=== PATIENT | female | born 1950 | race Caucasian/White ===

== ENCOUNTER 2017-01-19 10:52 | Observation (INO) | payer OTHER ==
[~2017-01-19] VITALS: Ht 157.5 cm; Wt 87.1 kg
[~2017-01-19 10:52] MED LIST: ACCU-CHEK AVIV1 EAC2; ACCU-CHEK AVIV1 EAC2 MC; ACETAMINOPHEN325 M1 PO; AMLODIPINE BESYL5 MG PO; ASPIR-LOW81 MG PO; ASPIRIN81 M1 PO; ASPIRIN81 M2 PO; ATORVASTATIN CA40 MG PO; Aspirin E.C. PO; BACTRIM,SEPT1 TABLE1 PO; BISACODYL5 MG PO; BUMETANIDE1 MG PO; CARVEDILOL12.5 MG PO; CEFEPIME HCL2 GM IM; CEFEPIME HCL2 GM IV; CEPHALEXIN500 MG PO; CLEOCIN300 MG PO; CLONAZEPAM0.5 MG PO; CLOPIDOGREL75 MG PO; Colace PO; EASY COMFORT P MC; FERROUS SULFAT325 MG PO; FLEXERIL5 MG PO; FLORASTOR250 MG PO; FUROSEMIDE40 MG PO; Flagyl PO; GABAPENTIN300 MG PO; HEPARIN SO5000 UNITS SC; HYDROCODON-ACE1 EAC7 PO; Hydrodiuril,Oretic,E PO; INSULIN SYRING1 EA30 MC; K-Dur PO; KLONOPIN0.5 M1 PO; KlonoPIN PO; LANTUS 10100 UNITS/ SC; LANTUS 3 M100 UNITS1 SC; LANTUS100 UNIT/1 SQ; LEVEMIR FL100 UNIT/1 SC; LEVEMIR100 UNIT/2 SC; LIPITOR40 MG PO; LISINOPRIL40 MG PO; LO-DOSE ASPIRIN81 M2 PO; LORAZEPAM1 MG PO; Lasix PO; Lopressor PO; MAXIPIME2 GM IM; MELOXICAM7.5 MG PO; METFORMIN HCL1000 MG PO; Maalox, Mylanta PO; NEURONTIN100 MG PO; NEURONTIN300 MG PO; NORVASC10 MG PO; NORVASC5 MG PO; NOVOLOG (UNITS1 UNIT IV; NOVOLOG 10100 UNITS/ SC; NOVOLOG PE100 UNITS/ SC; NYSTATIN15 GM TP; PLAVIX75 MG PO; PROVENTIL,2.5 MG/0.5 AEROSOL; PROzac PO; Plavix PO; Pravachol PO; Protonix PO; Rocephin IV; SERTRALINE HCL50 MG PO; SILVADENE,SSD,T50 GM TP; SILVER SULFADIA50 GM TP; SOFTCLIX1 EAC2 MC; TRAMADOL HCL50 MG PO; TYLENOL REGULA325 MG PO; Vicodin,Norco 5/325 PO; ZESTRIL40 MG PO; ZOLOFT50 MG PO; ZOSYN 3.3753.375 GM IV; Zestril,Prinivil PO; Zofran PO
[2017-01-19 12:06] LABS: HEMATOCRIT 36.7 % (36.0-46.0); MCH 29.2 PG (29.0-34.0); MCHC 33.2 G/DL (30.0-36.0); MCV 87.8 FL (83-99); MEAN PLAT.VOLUME 12.4 uM^3 (9.5-12.4); PLATELET COUNT 267 K/uL (156-360); RBC DIS.WIDTH-CV 12.5 % (11.8-14.6); RBC DIS.WIDTH-SD 39.4 % (39-53); RED BLOOD COUNT 4.18 M/uL (3.80-5.20); WHITE BLOOD COUNT 9.9 K/uL (4.1-10.2)
[2017-01-19 12:27] LABS: TROP-I INTERPRETATION NEGATIVE; TROPONIN-I 0.07 ng/mL (0.0-0.30)
[2017-01-19 12:33] LABS: CHLORIDE 109 mEq/L (99-109); POTASSIUM 4.5 mEq/L (3.7-5.4); SODIUM 141 mEq/L (136-147)
[2017-01-19 12:35] LABS: GLUCOSE 220 mg/dL (70-99)
[2017-01-19 12:36] LABS: ANION GAP 10 MEQ/L (2-14)
[2017-01-19 12:39] LABS: GFR ESTIMATE (CALCULATED) 48 mL/min/
[2017-01-19 12:40] LABS: UREA NITROGEN (BUN) 27 mg/dL (9-23)
[2017-01-19] MEDS ORDERED: FUROSEMIDE20 MG PO (13:30)
[2017-01-19] MEDS ORDERED: ASCORBIC ACID500 MG PO (13:31)
[2017-01-19] MEDS ORDERED: NOVOLOG PE100 UNITS/ SC (13:35)
[2017-01-19] MEDS ORDERED: LEVEMIR100 UNIT/2 SC (13:35)
[2017-01-19] MEDS ORDERED: MOTRIN IB200 MG PO (13:37)
[2017-01-19] MEDS ORDERED: LANTUS 10100 UNITS/ SC (13:38)
[2017-01-19 14:04] LABS: PROTHROMBIN TIME 9.7 (9.2-11.2); PTT 24.4 (25-32)
[2017-01-19 14:30] LABS: ADD MIUA? YES; BILIRUBIN NEGATIVE; BLOOD NEGATIVE; COLOR YELLOW ((YELLOW)); GLUCOSE (STRIP) >=500; KETONES NEGATIVE; LEUKOCYTES NEGATIVE; NITRITE NEGATIVE; PROTEIN (STRIP) >=500; SPECIFIC GRAVITY 1.018 (1.000-1.030); UROBILINOGEN 0.2 MG/DL (0.2-1.0)
[2017-01-19 14:38] LABS: BACTERIA NONE SEEN /HPF; EPITHELIAL CELLS RARE /HPF; GRANULAR CASTS 15-20 /LPF; HYALINE CASTS 0-5 /LPF; MUCUS TRACE /LPF; RED BLOOD CELLS 0-5 /HPF (0-5); WHITE BLOOD CELLS 0-5 /HPF (0-5)
[2017-01-19 15:49] VITALS: BP 167/72
[2017-01-19 16:08] LABS: HDL CHOLESTEROL 52 MG/DL (Desirable>=50); LDL CHOLESTEROL 62 mg/dL (Desirable<100); NON-HDL CHOLESTEROL 78 mg/dL (Desirable<160); SAMPLE HEMOLYSIS CHECK 0; SAMPLE ICTERIC CHECK 0; SAMPLE LIPEMIA CHECK 0; TOTAL CHOLESTEROL 130 mg/dL (Desirable<200); TRIGLYCERIDES 82 MG/DL (Normal: <150)
[2017-01-19 18:32] LABS: TROP-I INTERPRETATION NEGATIVE
[2017-01-19 18:38] LABS: Estimated Average Glucose 243 mg/dL (70-123); HEMOGLOBIN A1c (GLYCOHEMOGLOB) 10.1 % HGB (Below 5.7)
[2017-01-19 20:00] VITALS: BP 148/60
[2017-01-19 21:19] LABS: POINT-OF-CARE METER ID UU14162513
[2017-01-19 23:51] VITALS: BP 149/69
[2017-01-20 01:10] LABS: TROP-I INTERPRETATION NEGATIVE; TROPONIN-I 0.09 ng/mL (0.0-0.30)
[2017-01-20 04:00] VITALS: BP 144/62
[2017-01-20 06:25] LABS: ANION GAP 7 MEQ/L (2-14); CHLORIDE 108 MEQ/L (99-109); GFR ESTIMATE (CALCULATED) 48 mL/min/; GLUCOSE 132 mg/dL (70-99); POTASSIUM 3.8 MEQ/L (3.7-5.4); SAMPLE HEMOLYSIS CHECK 0; SAMPLE ICTERIC CHECK 0; SAMPLE LIPEMIA CHECK 0; SODIUM 142 MEQ/L (136-147); UREA NITROGEN (BUN) 26 mg/dL (9-23)
[2017-01-20 09:00] VITALS: BP 195/81
== END 2017-01-20 10:58 | disposition home or self-care (01) ==
LOC: EME 10:52 → EDOF 13:45 → 5WEST 15:37
PROVIDERS: Internal Medicine; Physician Assistant Medical
DX: R07.89 Other chest pain (principal); E87.6 Hypokalemia; I25.10 Atherosclerotic heart disease of native coronary artery without angina pectoris; R94.31 Abnormal electrocardiogram [ECG] [EKG]; R06.00 Dyspnea, unspecified; R00.2 Palpitations; I50.9 Heart failure, unspecified; G89.29 Other chronic pain; F32.9 Major depressive disorder, single episode, unspecified; E11.9 Type 2 diabetes mellitus without complications; E78.5 Hyperlipidemia, unspecified; K21.9 Gastro-esophageal reflux disease without esophagitis; I10 Essential (primary) hypertension; I25.2 Old myocardial infarction; Z95.5 Presence of coronary angioplasty implant and graft; I73.9 Peripheral vascular disease, unspecified; Z87.891 Personal history of nicotine dependence; E66.9 Obesity, unspecified
CPT/HCPCS: 71020; 80048; 80061; 81003; 82948; 83036; 83880; 84484; 85027; 85610; 85730; 93005; 99281; 99285; G0378; J1650; J1815; J2270

== ENCOUNTER 2017-02-07 15:23 | Inpatient (IN) | payer OTHER ==
[~2017-02-07] VITALS: Ht 157.5 cm; Wt 86.4 kg
[~2017-02-07 15:23] MED LIST changes: +ASCORBIC ACID500 MG PO; +FUROSEMIDE20 MG PO; +MOTRIN IB200 MG PO
[2017-02-07 15:59] LABS: HEMATOCRIT 39.6 % (36.0-46.0); MCHC 32.3 G/DL (30.0-36.0); MCV 89.6 FL (83-99); MEAN PLAT.VOLUME 13.3 uM^3 (9.5-12.4); PLATELET COUNT 228 K/uL (156-360); RBC DIS.WIDTH-CV 13.1 % (11.8-14.6); RBC DIS.WIDTH-SD 43.1 % (39-53); RED BLOOD COUNT 4.42 M/uL (3.80-5.20)
[2017-02-07 16:01] LABS: WHITE BLOOD COUNT 16.7 K/uL (4.1-10.2)
[2017-02-07 16:09] LABS: CHLORIDE 98 mEq/L (99-109); POTASSIUM 4.8 mEq/L (3.7-5.4); SODIUM 136 mEq/L (136-147)
[2017-02-07 16:12] LABS: ANION GAP 18 MEQ/L (2-14)
[2017-02-07 16:13] LABS: TOTAL BILIRUBIN 0.5 mg/dL (0.0-1.0)
[2017-02-07 16:14] LABS: ALKALINE PHOSPHATASE 138 IU/L (3-129)
[2017-02-07 16:15] LABS: GFR ESTIMATE (CALCULATED) 32 mL/min/
[2017-02-07 16:16] LABS: UREA NITROGEN (BUN) 40 mg/dL (9-23)
[2017-02-07 16:20] LABS: TROP-I INTERPRETATION INDETERMINATE; TROPONIN-I 0.55 ng/mL (0.0-0.30)
[2017-02-07 16:21] LABS: GLUCOSE 547 mg/dL (70-99)
[2017-02-07 17:50] LABS: INTER. NORMALIZED RATIO 1.2; PROTHROMBIN TIME 12.3 (9.2-11.2); PTT 31.3 (25-32)
[2017-02-07 18:26] LABS: Estimated Average Glucose 249 mg/dL (70-123); HEMOGLOBIN A1c (GLYCOHEMOGLOB) 10.3 % HGB (Below 5.7)
[2017-02-07 20:46] VITALS: BP 92/68
[2017-02-07 21:00] VITALS: BP 105/65
[2017-02-07 21:01] LABS: HEMATOCRIT 28.1 % (36.0-46.0); MCH 29.1 PG (29.0-34.0); MCHC 32.4 G/DL (30.0-36.0); MCV 89.8 FL (83-99); MEAN PLAT.VOLUME 13.2 uM^3 (9.5-12.4); PLATELET COUNT 258 K/uL (156-360); RBC DIS.WIDTH-CV 13.2 % (11.8-14.6); RBC DIS.WIDTH-SD 43.6 % (39-53); WHITE BLOOD COUNT 19.2 K/uL (4.1-10.2)
[2017-02-07 21:12] LABS: RED BLOOD COUNT 3.13 M/uL (3.80-5.20)
[2017-02-07 21:23] LABS: TROP-I INTERPRETATION POSITIVE; TROPONIN-I 1.52 ng/mL (0.0-0.30)
[2017-02-07 21:28] LABS: ANION GAP 14 MEQ/L (2-14); CHLORIDE 99 MEQ/L (99-109); MAGNESIUM 1.7 mg/dl (1.3-2.7); SAMPLE HEMOLYSIS CHECK 0; SAMPLE ICTERIC CHECK 0; SAMPLE LIPEMIA CHECK 0; SODIUM 134 MEQ/L (136-147)
[2017-02-07 21:32] LABS: POTASSIUM 3.8 MEQ/L (3.7-5.4)
[2017-02-07 21:40] LABS: GFR ESTIMATE (CALCULATED) 34 mL/min/; GLUCOSE 407 mg/dL (70-99); UREA NITROGEN (BUN) 42 mg/dL (9-23)
[2017-02-07 21:50] LABS: METH RESISTANT S AUREUS PCR NEGATIVE (NEGATIVE)
[2017-02-07 21:53] LABS: PROBE CHECK PASS; SPECIMEN PROCESSING CONTROL PASS
[2017-02-07 22:00] VITALS: BP 89/42
[2017-02-07 22:39] LABS: INTER. NORMALIZED RATIO 1.3
[2017-02-07 23:00] VITALS: BP 93/45
[2017-02-07 23:43] VITALS: BP 93/45
[2017-02-07 23:49] LABS: ADD MIUA? YES; BILIRUBIN NEGATIVE; BLOOD MODERATE; COLOR YELLOW ((YELLOW)); GLUCOSE (STRIP) >=500; KETONES 5; LEUKOCYTES NEGATIVE; NITRITE NEGATIVE; PROTEIN (STRIP) >=500; SPECIFIC GRAVITY 1.023 (1.000-1.030); UROBILINOGEN 0.2 MG/DL (0.2-1.0)
[2017-02-08] VITALS (35 sets, daily range): BP systolic 90–153; BP diastolic 38–86
[2017-02-08 00:02] LABS: BACTERIA NONE SEEN /HPF; EPITHELIAL CELLS RARE /HPF; MUCUS TRACE /LPF; RED BLOOD CELLS NONE SEEN /HPF (0-5); UCUL ADDED? NO
[2017-02-08 00:05] LABS: FIBRINOGEN 573 MG/DL (160-450)
[2017-02-08 01:34] LABS: POINT-OF-CARE METER ID UU14162636
[2017-02-08 02:08] LABS: CARBON DIOXIDE (BICARBONATE) 25.3 MEQ/L (20-31)
[2017-02-08 02:21] LABS: CHLORIDE 102 mEq/L (99-109); SODIUM 134 mEq/L (136-147)
[2017-02-08 02:23] LABS: GLUCOSE 208 mg/dL (70-99)
[2017-02-08 02:24] LABS: ANION GAP 8 MEQ/L (2-14)
[2017-02-08 02:27] LABS: GFR ESTIMATE (CALCULATED) 27 mL/min/
[2017-02-08 02:27] LABS: POINT-OF-CARE METER ID UU14162636
[2017-02-08 02:28] LABS: UREA NITROGEN (BUN) 46 mg/dL (9-23)
[2017-02-08 02:40] LABS: TROP-I INTERPRETATION POSITIVE; TROPONIN-I 22.05 ng/mL (0.0-0.30)
[2017-02-08 03:37] LABS: HEMATOCRIT 40.5 % (36.0-46.0); MCH 28.9 PG (29.0-34.0); MCHC 32.6 G/DL (30.0-36.0); MCV 88.8 FL (83-99); RBC DIS.WIDTH-CV 13.2 % (11.8-14.6); RBC DIS.WIDTH-SD 43.4 % (39-53)
[2017-02-08 03:38] LABS: POINT-OF-CARE METER ID UU14162636
[2017-02-08 03:38] LABS: RED BLOOD COUNT 4.56 M/uL (3.80-5.20)
[2017-02-08 04:06] LABS: MEAN PLAT.VOLUME 13.1 uM^3 (9.5-12.4)
[2017-02-08 04:08] LABS: PLATELET COUNT 174 K/uL (156-360)
[2017-02-08 04:22] LABS: POINT-OF-CARE METER ID UU14162636
[2017-02-08 05:46] LABS: CARBON DIOXIDE (BICARBONATE) 27.9 MEQ/L (20-31)
[2017-02-08 05:55] LABS: CHLORIDE 101 mEq/L (99-109); POTASSIUM 3.9 mEq/L (3.7-5.4); SODIUM 135 mEq/L (136-147)
[2017-02-08 05:56] LABS: MAGNESIUM 1.4 mg/dL (1.3-2.7)
[2017-02-08 05:58] LABS: GLUCOSE 130 mg/dL (70-99)
[2017-02-08 05:59] LABS: ANION GAP 10 MEQ/L (2-14)
[2017-02-08 06:02] LABS: ALKALINE PHOSPHATASE 95 IU/L (3-129); GFR ESTIMATE (CALCULATED) 25 mL/min/; TOTAL BILIRUBIN 1.2 mg/dL (0.0-1.0)
[2017-02-08 06:03] LABS: UREA NITROGEN (BUN) 48 mg/dL (9-23)
[2017-02-08 06:08] LABS: TROP-I INTERPRETATION POSITIVE
[2017-02-08 06:08] LABS: HEMATOCRIT 35.6 % (36.0-46.0); MCH 29.1 PG (29.0-34.0); MCHC 33.1 G/DL (30.0-36.0); MCV 87.7 FL (83-99); MEAN PLAT.VOLUME 13.5 uM^3 (9.5-12.4); PLATELET COUNT 198 K/uL (156-360); RBC DIS.WIDTH-CV 13.3 % (11.8-14.6); RBC DIS.WIDTH-SD 42.7 % (39-53); RED BLOOD COUNT 4.06 M/uL (3.80-5.20); WHITE BLOOD COUNT 14.2 K/uL (4.1-10.2)
[2017-02-08 06:27] LABS: POINT-OF-CARE METER ID UU14162636
[2017-02-08 10:17] LABS: HEMATOCRIT 37.9 % (36.0-46.0); MCH 29.5 PG (29.0-34.0); MCHC 33.5 G/DL (30.0-36.0); MCV 87.9 FL (83-99); RBC DIS.WIDTH-CV 13.6 % (11.8-14.6); RBC DIS.WIDTH-SD 44.3 % (39-53); RED BLOOD COUNT 4.31 M/uL (3.80-5.20); WHITE BLOOD COUNT 14.5 K/uL (4.1-10.2)
[2017-02-08 10:44] LABS: ANION GAP 12 MEQ/L (2-14); CHLORIDE 103 MEQ/L (99-109); GFR ESTIMATE (CALCULATED) 25 mL/min/; GLUCOSE 159 mg/dL (70-99); POTASSIUM 4.1 MEQ/L (3.7-5.4); SAMPLE HEMOLYSIS CHECK 0; SAMPLE ICTERIC CHECK 0; SAMPLE LIPEMIA CHECK 0; SODIUM 135 MEQ/L (136-147); UREA NITROGEN (BUN) 50 mg/dL (9-23)
[2017-02-08 10:46] LABS: TROP-I INTERPRETATION POSITIVE
[2017-02-08 12:12] LABS: POINT-OF-CARE METER ID UU14162636
[2017-02-08 12:27] LABS: PLATELET COUNT UNABLE TO REPORT K/uL (156-360)
[2017-02-08 13:59] LABS: HEMATOCRIT 39.1 % (36.0-46.0); MCH 29.5 PG (29.0-34.0); MCHC 33.5 G/DL (30.0-36.0); MCV 88.1 FL (83-99); MEAN PLAT.VOLUME 13.1 uM^3 (9.5-12.4); RBC DIS.WIDTH-CV 13.7 % (11.8-14.6); RBC DIS.WIDTH-SD 44.4 % (39-53); RED BLOOD COUNT 4.44 M/uL (3.80-5.20); WHITE BLOOD COUNT 14.7 K/uL (4.1-10.2)
[2017-02-08 14:01] LABS: PLATELET COUNT 179 K/uL (156-360)
[2017-02-08 14:21] LABS: ANION GAP 13 MEQ/L (2-14); CHLORIDE 102 MEQ/L (99-109); GFR ESTIMATE (CALCULATED) 25 mL/min/; GLUCOSE 197 mg/dL (70-99); POTASSIUM 4.1 MEQ/L (3.7-5.4); SAMPLE HEMOLYSIS CHECK 0; SAMPLE ICTERIC CHECK 0; SAMPLE LIPEMIA CHECK 0; SODIUM 137 MEQ/L (136-147); UREA NITROGEN (BUN) 54 mg/dL (9-23)
[2017-02-08 14:26] LABS: TROP-I INTERPRETATION POSITIVE
[2017-02-08 14:33] LABS: POINT-OF-CARE METER ID UU14162636
[2017-02-08] MEDS ORDERED: NOVOLOG 10100 UNITS/ SC (14:42)
[2017-02-08] MEDS ORDERED: FUROSEMIDE20 MG PO (14:42)
[2017-02-08] MEDS ORDERED: CLOPIDOGREL75 MG PO (14:42)
[2017-02-08] MEDS ORDERED: CARVEDILOL12.5 MG PO (14:42)
[2017-02-08] MEDS ORDERED: CLONAZEPAM0.5 MG PO (14:43)
[2017-02-08] MEDS ORDERED: LANTUS 10100 UNITS/ SC (14:43)
[2017-02-08] MEDS ORDERED: SERTRALINE HCL50 MG PO (14:43)
[2017-02-08] MEDS ORDERED: ATORVASTATIN CA40 MG PO (14:44)
[2017-02-08] MEDS ORDERED: VITAMIN C500 M1 PO (14:44)
[2017-02-08] MEDS ORDERED: ADVIL,NUPRIN,M200 MG PO (14:45)
[2017-02-08] MEDS ORDERED: HYDROCODON-ACE1 EAC7 PO (14:45)
[2017-02-08] MEDS ORDERED: IRON325 MG PO (14:45)
[2017-02-08] MEDS ORDERED: LO-DOSE ASPIRIN81 M2 PO (14:45)
[2017-02-08] MEDS ORDERED: CALCIUM 500 MG1 EACH PO (14:45)
[2017-02-08 18:05] LABS: HEMATOCRIT 42.2 % (36.0-46.0); MCH 29.1 PG (29.0-34.0); MCHC 32.9 G/DL (30.0-36.0); MCV 88.3 FL (83-99); RBC DIS.WIDTH-CV 13.6 % (11.8-14.6); RBC DIS.WIDTH-SD 44.4 % (39-53); RED BLOOD COUNT 4.78 M/uL (3.80-5.20); WHITE BLOOD COUNT 13.5 K/uL (4.1-10.2)
[2017-02-08 18:12] LABS: POINT-OF-CARE METER ID UU14162636
[2017-02-08 18:26] LABS: MEAN PLAT.VOLUME 13.1 uM^3 (9.5-12.4); PLATELET COUNT 195 K/uL (156-360)
[2017-02-08 18:30] LABS: ANION GAP 13 MEQ/L (2-14); CHLORIDE 100 MEQ/L (99-109); GFR ESTIMATE (CALCULATED) 24 mL/min/; GLUCOSE 237 mg/dL (70-99); POTASSIUM 4.1 MEQ/L (3.7-5.4); SAMPLE HEMOLYSIS CHECK 0; SAMPLE ICTERIC CHECK 0; SAMPLE LIPEMIA CHECK 0; SODIUM 136 MEQ/L (136-147); UREA NITROGEN (BUN) 52 mg/dL (9-23)
[2017-02-08 19:00] LABS: TROP-I INTERPRETATION POSITIVE; TROPONIN-I 112.18 ng/mL (0.0-0.30)
[2017-02-08 21:42] LABS: POINT-OF-CARE METER ID UU14162636
[2017-02-08 21:52] LABS: HEMATOCRIT 41.4 % (36.0-46.0); MCHC 32.9 G/DL (30.0-36.0); MCV 88.3 FL (83-99); MEAN PLAT.VOLUME 13.1 uM^3 (9.5-12.4); PLATELET COUNT 174 K/uL (156-360); RBC DIS.WIDTH-CV 13.7 % (11.8-14.6); RBC DIS.WIDTH-SD 44.5 % (39-53); RED BLOOD COUNT 4.69 M/uL (3.80-5.20); WHITE BLOOD COUNT 12.5 K/uL (4.1-10.2)
[2017-02-09] VITALS (23 sets, daily range): BP systolic 111–151; BP diastolic 47–69
[2017-02-09 05:15] LABS: HEMATOCRIT 38.5 % (36.0-46.0); MCH 29.1 PG (29.0-34.0); MCHC 33.2 G/DL (30.0-36.0); MCV 87.5 FL (83-99); MEAN PLAT.VOLUME 13.5 uM^3 (9.5-12.4); PLATELET COUNT 173 K/uL (156-360); RBC DIS.WIDTH-CV 13.8 % (11.8-14.6); WHITE BLOOD COUNT 12.7 K/uL (4.1-10.2)
[2017-02-09 05:45] LABS: ALKALINE PHOSPHATASE 73 IU/L (3-129); ANION GAP 14 MEQ/L (2-14); CHLORIDE 100 MEQ/L (99-109); GFR ESTIMATE (CALCULATED) 21 mL/min/; GLUCOSE 273 mg/dL (70-99); MAGNESIUM 1.9 mg/dl (1.3-2.7); POTASSIUM 3.9 MEQ/L (3.7-5.4); SAMPLE HEMOLYSIS CHECK 0; SAMPLE ICTERIC CHECK 0; SAMPLE LIPEMIA CHECK 0; SODIUM 136 MEQ/L (136-147); TOTAL BILIRUBIN 0.5 MG/DL (0.0-1.0); UREA NITROGEN (BUN) 61 mg/dL (9-23)
[2017-02-09 05:53] LABS: TROP-I INTERPRETATION POSITIVE; TROPONIN-I 78.53 ng/mL (0.0-0.30)
[2017-02-09 08:02] LABS: POINT-OF-CARE METER ID UU13113702
[2017-02-09 08:02] LABS: POINT-OF-CARE METER ID UU13113702
[2017-02-09 13:49] LABS: TROP-I INTERPRETATION POSITIVE
[2017-02-09 16:35] LABS: POINT-OF-CARE USER ID 606021424
[2017-02-09 19:36] LABS: TROPONIN-I 44.45 ng/mL (0.0-0.30)
[2017-02-09 19:40] LABS: TROP-I INTERPRETATION POSITIVE
[2017-02-09 22:21] LABS: POINT-OF-CARE METER ID UU13113731
[2017-02-10] VITALS (10 sets, daily range): BP systolic 110–165; BP diastolic 46–71
[2017-02-10 02:55] LABS: TROP-I INTERPRETATION POSITIVE; TROPONIN-I 33.34 ng/mL (0.0-0.30)
[2017-02-10 08:22] LABS: POINT-OF-CARE METER ID UU13113731
[2017-02-10 10:08] LABS: HEMATOCRIT 40.5 % (36.0-46.0); MCH 28.7 PG (29.0-34.0); MCHC 32.8 G/DL (30.0-36.0); MCV 87.5 FL (83-99); MEAN PLAT.VOLUME 13.1 uM^3 (9.5-12.4); PLATELET COUNT 177 K/uL (156-360); RBC DIS.WIDTH-CV 13.6 % (11.8-14.6); RBC DIS.WIDTH-SD 43.8 % (39-53); RED BLOOD COUNT 4.63 M/uL (3.80-5.20); WHITE BLOOD COUNT 12.8 K/uL (4.1-10.2)
[2017-02-10 10:48] LABS: TROP-I INTERPRETATION POSITIVE; TROPONIN-I 26.07 ng/mL (0.0-0.30)
[2017-02-10 10:51] LABS: ALKALINE PHOSPHATASE 73 IU/L (3-129); ANION GAP 11 MEQ/L (2-14); CHLORIDE 101 MEQ/L (99-109); GFR ESTIMATE (CALCULATED) 25 mL/min/; GLUCOSE 312 mg/dL (70-99); MAGNESIUM 2.5 mg/dl (1.3-2.7); POTASSIUM 3.9 MEQ/L (3.7-5.4); SAMPLE HEMOLYSIS CHECK 0; SAMPLE ICTERIC CHECK 0; SAMPLE LIPEMIA CHECK 0; SODIUM 136 MEQ/L (136-147); TOTAL BILIRUBIN 0.4 MG/DL (0.0-1.0); UREA NITROGEN (BUN) 65 mg/dL (9-23)
[2017-02-10 12:10] LABS: POINT-OF-CARE METER ID UU14162636
[2017-02-10 16:57] LABS: POINT-OF-CARE METER ID UU14162636
[2017-02-10 18:24] LABS: TROP-I INTERPRETATION POSITIVE; TROPONIN-I 22.94 ng/mL (0.0-0.30)
[2017-02-10 21:28] LABS: POINT-OF-CARE METER ID UU14162636
[2017-02-11] VITALS (10 sets, daily range): BP systolic 78–165; BP diastolic 42–63
[2017-02-11 03:16] LABS: POINT-OF-CARE METER ID UU14174217
[2017-02-11 06:05] LABS: HEMATOCRIT 39.1 % (36.0-46.0); MCH 28.8 PG (29.0-34.0); MCHC 32.2 G/DL (30.0-36.0); MCV 89.3 FL (83-99); MEAN PLAT.VOLUME 12.9 uM^3 (9.5-12.4); PLATELET COUNT 199 K/uL (156-360); RBC DIS.WIDTH-CV 13.4 % (11.8-14.6); RBC DIS.WIDTH-SD 44.4 % (39-53); RED BLOOD COUNT 4.38 M/uL (3.80-5.20); WHITE BLOOD COUNT 11.5 K/uL (4.1-10.2)
[2017-02-11 06:31] LABS: TROP-I INTERPRETATION POSITIVE; TROPONIN-I 23.72 ng/mL (0.0-0.30)
[2017-02-11 06:34] LABS: ALKALINE PHOSPHATASE 79 IU/L (3-129); ANION GAP 9 MEQ/L (2-14); CHLORIDE 103 MEQ/L (99-109); GFR ESTIMATE (CALCULATED) 27 mL/min/; GLUCOSE 143 mg/dL (70-99); MAGNESIUM 2.4 mg/dl (1.3-2.7); POTASSIUM 3.7 MEQ/L (3.7-5.4); SAMPLE HEMOLYSIS CHECK 0; SAMPLE ICTERIC CHECK 0; SAMPLE LIPEMIA CHECK 0; SODIUM 135 MEQ/L (136-147); TOTAL BILIRUBIN 0.4 MG/DL (0.0-1.0); UREA NITROGEN (BUN) 58 mg/dL (9-23)
[2017-02-11 08:38] LABS: POINT-OF-CARE METER ID UU13113731
[2017-02-11 11:53] LABS: POINT-OF-CARE METER ID UU13113731
[2017-02-11 17:28] LABS: POINT-OF-CARE METER ID UU13113731
[2017-02-11 18:29] LABS: TROP-I INTERPRETATION POSITIVE; TROPONIN-I 17.53 ng/mL (0.0-0.30)
[2017-02-11 20:05] LABS: POINT-OF-CARE METER ID UU14174217
[2017-02-12] VITALS (8 sets, daily range): BP systolic 105–153; BP diastolic 33–59
[2017-02-12 04:40] LABS: POINT-OF-CARE METER ID UU13113731
[2017-02-12 04:50] LABS: MCH 29.1 PG (29.0-34.0); MCHC 32.6 G/DL (30.0-36.0); MCV 89.4 FL (83-99); RBC DIS.WIDTH-CV 13.4 % (11.8-14.6); RBC DIS.WIDTH-SD 44.5 % (39-53); RED BLOOD COUNT 4.36 M/uL (3.80-5.20); WHITE BLOOD COUNT 10.1 K/uL (4.1-10.2)
[2017-02-12 05:04] LABS: CHLORIDE 105 mEq/L (99-109); POTASSIUM 3.9 mEq/L (3.7-5.4); SODIUM 136 mEq/L (136-147)
[2017-02-12 05:06] LABS: GLUCOSE 223 mg/dL (70-99); MAGNESIUM 2.4 mg/dL (1.3-2.7)
[2017-02-12 05:07] LABS: ANION GAP 7 MEQ/L (2-14)
[2017-02-12 05:09] LABS: ALKALINE PHOSPHATASE 77 IU/L (3-129)
[2017-02-12 05:10] LABS: GFR ESTIMATE (CALCULATED) 28 mL/min/
[2017-02-12 05:11] LABS: UREA NITROGEN (BUN) 60 mg/dL (9-23)
[2017-02-12 05:26] LABS: TOTAL BILIRUBIN 0.3 mg/dL (0.0-1.0)
[2017-02-12 07:03] LABS: MEAN PLAT.VOLUME 13.1 uM^3 (9.5-12.4); PLATELET COUNT 207 K/uL (156-360)
[2017-02-12 12:31] LABS: POINT-OF-CARE METER ID UU13113803
[2017-02-12 16:54] LABS: POINT-OF-CARE METER ID UU13113803
[2017-02-13] VITALS (8 sets, daily range): BP systolic 84–155; BP diastolic 45–63
[2017-02-13 06:49] LABS: HEMATOCRIT 41.9 % (36.0-46.0); MCH 29.1 PG (29.0-34.0); MCHC 30.5 G/DL (30.0-36.0); MEAN PLAT.VOLUME 12.6 uM^3 (9.5-12.4); PLATELET COUNT 210 K/uL (156-360); RBC DIS.WIDTH-CV 13.5 % (11.8-14.6); RBC DIS.WIDTH-SD 47.9 % (39-53); WHITE BLOOD COUNT 11.3 K/uL (4.1-10.2)
[2017-02-13 07:01] LABS: MCV 95.2 FL (83-99)
[2017-02-13 07:06] LABS: ALKALINE PHOSPHATASE 75 IU/L (3-129); ANION GAP 13 MEQ/L (2-14); CHLORIDE 105 MEQ/L (99-109); GFR ESTIMATE (CALCULATED) 30 mL/min/; GLUCOSE 312 mg/dL (70-99); MAGNESIUM 2.5 mg/dl (1.3-2.7); POTASSIUM 4.3 MEQ/L (3.7-5.4); SAMPLE HEMOLYSIS CHECK 0; SAMPLE ICTERIC CHECK 0; SAMPLE LIPEMIA CHECK 0; SODIUM 136 MEQ/L (136-147); TOTAL BILIRUBIN 0.3 MG/DL (0.0-1.0); UREA NITROGEN (BUN) 50 mg/dL (9-23)
[2017-02-13 22:22] LABS: POINT-OF-CARE METER ID UU14174217; POINT-OF-CARE USER ID RADDRS44
[2017-02-14] VITALS (12 sets, daily range): BP systolic 116–166; BP diastolic 39–67
[2017-02-14 05:48] LABS: HEMATOCRIT 35.9 % (36.0-46.0); MCHC 32.6 G/DL (30.0-36.0); MCV 88.9 FL (83-99); MEAN PLAT.VOLUME 12.4 uM^3 (9.5-12.4); PLATELET COUNT 276 K/uL (156-360); RBC DIS.WIDTH-CV 13.3 % (11.8-14.6); RBC DIS.WIDTH-SD 43.8 % (39-53); RED BLOOD COUNT 4.04 M/uL (3.80-5.20)
[2017-02-14 06:08] LABS: ANION GAP 7 MEQ/L (2-14); CHLORIDE 106 MEQ/L (99-109); GFR ESTIMATE (CALCULATED) 32 mL/min/; POTASSIUM 3.5 MEQ/L (3.7-5.4); SAMPLE HEMOLYSIS CHECK 0; SAMPLE ICTERIC CHECK 0; SAMPLE LIPEMIA CHECK 0; SODIUM 138 MEQ/L (136-147); UREA NITROGEN (BUN) 51 mg/dL (9-23)
[2017-02-14 06:13] LABS: GLUCOSE 120 mg/dL (70-99)
[2017-02-14 06:21] LABS: ALKALINE PHOSPHATASE 68 IU/L (3-129); ANION GAP 8 MEQ/L (2-14); CHLORIDE 106 MEQ/L (99-109); GFR ESTIMATE (CALCULATED) 32 mL/min/; MAGNESIUM 2.5 mg/dl (1.3-2.7); POTASSIUM 3.5 MEQ/L (3.7-5.4); SAMPLE HEMOLYSIS CHECK 0; SAMPLE ICTERIC CHECK 0; SAMPLE LIPEMIA CHECK 0; SODIUM 138 MEQ/L (136-147); TOTAL BILIRUBIN 0.3 MG/DL (0.0-1.0); UREA NITROGEN (BUN) 51 mg/dL (9-23)
[2017-02-14 06:33] LABS: GLUCOSE 120 mg/dL (70-99)
[2017-02-14 08:45] LABS: POINT-OF-CARE METER ID UU14174217
[2017-02-14 13:07] LABS: POINT-OF-CARE METER ID UU14174217
[2017-02-14 18:56] LABS: POINT-OF-CARE METER ID UU13113819
[2017-02-14 21:26] LABS: POINT-OF-CARE METER ID UU14174217
[2017-02-15] VITALS (8 sets, daily range): BP systolic 119–166; BP diastolic 41–55
[2017-02-15 05:57] LABS: BASOPHIL COUNT 0.1 K/uL (0-0.1); EOSINOPHIL (%) 3.6 % (0-5); EOSINOPHIL COUNT 0.5 K/uL (0-0.3); HEMATOCRIT 33.8 % (36.0-46.0); IMMATURE GRANULOCYTE (%) 1.6 % (0.0-0.7); IMMATURE GRANULOCYTE COUNT 0.2 K/uL; INSTRUMENT ABS NEUTROPHIL CT 8.8 K/uL; MCH 28.7 PG (29.0-34.0); MCHC 31.7 G/DL (30.0-36.0); MCV 90.6 FL (83-99); MEAN PLAT.VOLUME 12.2 uM^3 (9.5-12.4); MONOCYTE (%) 7.9 % (3-12); MONOCYTE COUNT 1.1 K/uL (0-0.8); NEUTROPHIL (%) 64.3 % (45-76); NEUTROPHIL COUNT 8.8 K/uL (1.8-6.4); PLATELET COUNT 287 K/uL (156-360); RBC DIS.WIDTH-CV 13.6 % (11.8-14.6); RBC DIS.WIDTH-SD 45.2 % (39-53); RED BLOOD COUNT 3.73 M/uL (3.80-5.20); WHITE BLOOD COUNT 13.7 K/uL (4.1-10.2)
[2017-02-15 06:21] LABS: ANION GAP 8 MEQ/L (2-14); CHLORIDE 108 MEQ/L (99-109); GFR ESTIMATE (CALCULATED) 34 mL/min/; GLUCOSE 105 mg/dL (70-99); POTASSIUM 3.9 MEQ/L (3.7-5.4); SAMPLE HEMOLYSIS CHECK 0; SAMPLE ICTERIC CHECK 0; SAMPLE LIPEMIA CHECK 0; SODIUM 141 MEQ/L (136-147); UREA NITROGEN (BUN) 44 mg/dL (9-23)
[2017-02-15 12:16] LABS: POINT-OF-CARE METER ID UU13113731
[2017-02-15 17:30] LABS: POINT-OF-CARE METER ID UU13113731
[2017-02-15 22:28] LABS: POINT-OF-CARE METER ID UU13113731
[2017-02-16] VITALS (11 sets, daily range): BP systolic 52–154; BP diastolic 38–58
[2017-02-16 05:49] LABS: MCH 28.7 PG (29.0-34.0); MCHC 31.7 G/DL (30.0-36.0); MCV 90.7 FL (83-99); RBC DIS.WIDTH-CV 13.6 % (11.8-14.6); RBC DIS.WIDTH-SD 45.7 % (39-53); RED BLOOD COUNT 3.97 M/uL (3.80-5.20); WHITE BLOOD COUNT 12.9 K/uL (4.1-10.2)
[2017-02-16 07:12] LABS: PLATELET COUNT UNABLE TO REPORT K/uL (156-360)
[2017-02-16 07:32] LABS: ANION GAP 8 MEQ/L (2-14); CHLORIDE 106 MEQ/L (99-109); GFR ESTIMATE (CALCULATED) 32 mL/min/; POTASSIUM 4.5 MEQ/L (3.7-5.4); SAMPLE HEMOLYSIS CHECK 0; SAMPLE ICTERIC CHECK 0; SAMPLE LIPEMIA CHECK 0; SODIUM 141 MEQ/L (136-147); UREA NITROGEN (BUN) 42 mg/dL (9-23)
[2017-02-16 07:39] LABS: GLUCOSE 159 mg/dL (70-99)
[2017-02-16 21:43] LABS: BASE EXCESS -7.3 mEq/L (-3 to +3); BICARBONATE 26.3 mEq/L (22-26); CARBOXY HGB 1.4 % (0-5); METHEMOGLOBIN 1.4 % (0-1.5); PCO2 102 mm Hg (35-45); PO2 49 mm Hg (80-100); TOTAL RESP RATE 20 resp/min; pH 7.02 (7.35-7.45)
[2017-02-16 21:44] LABS: DEVICE NRM; FI02 90 %; O2 FLOW 20 L/MIN; SITE LR
[2017-02-17] VITALS (8 sets, daily range): BP systolic 114–167; BP diastolic 43–73
[2017-02-17 07:48] LABS: ANION GAP 8 MEQ/L (2-14); CHLORIDE 104 MEQ/L (99-109); GFR ESTIMATE (CALCULATED) 30 mL/min/; SAMPLE HEMOLYSIS CHECK 0; SAMPLE ICTERIC CHECK 0; SAMPLE LIPEMIA CHECK 0; SODIUM 138 MEQ/L (136-147); UREA NITROGEN (BUN) 47 mg/dL (9-23)
[2017-02-17 07:49] LABS: GLUCOSE 422 mg/dL (70-99); POTASSIUM 5.9 MEQ/L (3.7-5.4)
[2017-02-17 10:12] LABS: TROP-I INTERPRETATION POSITIVE; TROPONIN-I 3.33 ng/mL (0.0-0.30)
[2017-02-18 09:51] LABS: HEMATOCRIT 38.2 % (36.0-46.0); MCH 28.7 PG (29.0-34.0); MCHC 31.7 G/DL (30.0-36.0); MCV 90.7 FL (83-99); MEAN PLAT.VOLUME 12.4 uM^3 (9.5-12.4); PLATELET COUNT 409 K/uL (156-360); RBC DIS.WIDTH-CV 13.5 % (11.8-14.6); RBC DIS.WIDTH-SD 45.2 % (39-53); RED BLOOD COUNT 4.21 M/uL (3.80-5.20); WHITE BLOOD COUNT 28.3 K/uL (4.1-10.2)
[2017-02-18 10:20] LABS: ANION GAP 11 MEQ/L (2-14); CHLORIDE 95 MEQ/L (99-109); GFR ESTIMATE (CALCULATED) 21 mL/min/; GLUCOSE 534 mg/dL (70-99); POTASSIUM 6.1 MEQ/L (3.7-5.4); SAMPLE HEMOLYSIS CHECK 0; SAMPLE ICTERIC CHECK 0; SAMPLE LIPEMIA CHECK 0; SODIUM 128 MEQ/L (136-147); UREA NITROGEN (BUN) 66 mg/dL (9-23)
[2017-02-18 16:12] VITALS: BP 117/56
[2017-02-18 16:13] LABS: POINT-OF-CARE METER ID UU13113725
[2017-02-18 16:50] VITALS: BP 147/67
[2017-02-18 17:09] LABS: POINT-OF-CARE METER ID UU13113698
[2017-02-18 17:34] LABS: ANION GAP 12 MEQ/L (2-14); CHLORIDE 98 MEQ/L (99-109); POTASSIUM 4.9 MEQ/L (3.7-5.4); SAMPLE HEMOLYSIS CHECK 0; SAMPLE ICTERIC CHECK 0; SAMPLE LIPEMIA CHECK 0; SODIUM 132 MEQ/L (136-147)
[2017-02-18 17:53] LABS: GFR ESTIMATE (CALCULATED) 19 mL/min/; GLUCOSE 340 mg/dL (70-99); UREA NITROGEN (BUN) 71 mg/dL (9-23)
[2017-02-18 19:10] VITALS: BP 125/56
[2017-02-18 20:55] LABS: POINT-OF-CARE METER ID UU13113698
[2017-02-19 00:15] VITALS: BP 140/65
[2017-02-19 04:10] VITALS: BP 1466/61
[2017-02-19 04:52] LABS: ADD MIUA? YES; BILIRUBIN NEGATIVE; BLOOD LARGE; COLOR YELLOW ((YELLOW)); GLUCOSE (STRIP) 50; KETONES NEGATIVE; LEUKOCYTES NEGATIVE; NITRITE NEGATIVE; PROTEIN (STRIP) 30; SPECIFIC GRAVITY 1.011 (1.000-1.030); UROBILINOGEN 0.2 MG/DL (0.2-1.0)
[2017-02-19 05:04] LABS: BACTERIA NONE SEEN /HPF; EPITHELIAL CELLS RARE /HPF; MUCUS TRACE /LPF; RED BLOOD CELLS 40-50 /HPF (0-5); WHITE BLOOD CELLS 0-5 /HPF (0-5)
[2017-02-19 06:49] LABS: EOSINOPHIL (%) 0 % (0-5); HEMATOCRIT 35.8 % (36.0-46.0); IMMATURE GRANULOCYTE (%) 0.6 % (0.0-0.7); IMMATURE GRANULOCYTE COUNT 0.1 K/uL; INSTRUMENT ABS NEUTROPHIL CT 14.7 K/uL; LYMPHOCYTE COUNT 2.1 K/uL (1.0-2.8); MCH 28.6 PG (29.0-34.0); MCHC 31.3 G/DL (30.0-36.0); MCV 91.3 FL (83-99); MEAN PLAT.VOLUME 12.3 uM^3 (9.5-12.4); MONOCYTE (%) 4.4 % (3-12); MONOCYTE COUNT 0.8 K/uL (0-0.8); NEUTROPHIL (%) 82.9 % (45-76); NEUTROPHIL COUNT 14.7 K/uL (1.8-6.4); PLATELET COUNT 355 K/uL (156-360); RBC DIS.WIDTH-CV 13.7 % (11.8-14.6); RBC DIS.WIDTH-SD 45.9 % (39-53); RED BLOOD COUNT 3.92 M/uL (3.80-5.20)
[2017-02-19 06:50] LABS: WHITE BLOOD COUNT 17.8 K/uL (4.1-10.2)
[2017-02-19 07:09] LABS: ANION GAP 10 MEQ/L (2-14); CHLORIDE 99 MEQ/L (99-109); GFR ESTIMATE (CALCULATED) 18 mL/min/; GLUCOSE 255 mg/dL (70-99); MAGNESIUM 2.8 mg/dl (1.3-2.7); POTASSIUM 5.1 MEQ/L (3.7-5.4); SAMPLE HEMOLYSIS CHECK 0; SAMPLE ICTERIC CHECK 0; SAMPLE LIPEMIA CHECK 0; SODIUM 135 MEQ/L (136-147); UREA NITROGEN (BUN) 75 mg/dL (9-23)
[2017-02-19 08:00] VITALS: BP 188/77
[2017-02-19 08:03] LABS: POINT-OF-CARE METER ID UU14174216; POINT-OF-CARE USER ID ENVKC36
[2017-02-19 11:34] LABS: POINT-OF-CARE METER ID UU14174216; POINT-OF-CARE USER ID ENVKC36
[2017-02-19 12:13] VITALS: BP 144/67
[2017-02-19 16:45] VITALS: BP 177/74
[2017-02-19 17:53] LABS: POINT-OF-CARE METER ID UU13113803; POINT-OF-CARE USER ID 606021424
[2017-02-19 19:15] VITALS: BP 160/80
[2017-02-19 21:13] LABS: POINT-OF-CARE METER ID UU14174216
[2017-02-19 22:34] LABS: C DIFF TOXIN NEGATIVE (NEGATIVE)
[2017-02-19 22:36] LABS: PROBE CHECK PASS; SPECIMEN PROCESSING CONTROL PASS
[2017-02-20 00:20] VITALS: BP 160/58
[2017-02-20 03:50] VITALS: BP 158/62
[2017-02-20 07:26] LABS: ANION GAP 11 MEQ/L (2-14); CHLORIDE 105 MEQ/L (99-109); GLUCOSE 169 mg/dL (70-99); POTASSIUM 4.7 MEQ/L (3.7-5.4); SAMPLE HEMOLYSIS CHECK 0; SAMPLE ICTERIC CHECK 0; SAMPLE LIPEMIA CHECK 0; UREA NITROGEN (BUN) 65 mg/dL (9-23)
[2017-02-20 07:27] LABS: GFR ESTIMATE (CALCULATED) 25 mL/min/; SODIUM 143 MEQ/L (136-147)
[2017-02-20 07:29] VITALS: BP 148/80
[2017-02-20 07:47] LABS: POINT-OF-CARE METER ID UU14174216; POINT-OF-CARE USER ID ENVKC36
[2017-02-20 08:03] LABS: EOSINOPHIL (%) 0.6 % (0-5); EOSINOPHIL COUNT 0.1 K/uL (0-0.3); HEMATOCRIT 36.4 % (36.0-46.0); IMMATURE GRANULOCYTE (%) 0.4 % (0.0-0.7); IMMATURE GRANULOCYTE COUNT 0.1 K/uL; MCH 28.2 PG (29.0-34.0); MCV 90.8 FL (83-99); MEAN PLAT.VOLUME 12.7 uM^3 (9.5-12.4); MONOCYTE (%) 8.2 % (3-12); NEUTROPHIL (%) 66.1 % (45-76); PLATELET COUNT 324 K/uL (156-360); RBC DIS.WIDTH-CV 13.6 % (11.8-14.6); RBC DIS.WIDTH-SD 45.5 % (39-53); RED BLOOD COUNT 4.01 M/uL (3.80-5.20)
[2017-02-20 08:04] LABS: WHITE BLOOD COUNT 12.1 K/uL (4.1-10.2)
[2017-02-20 11:13] VITALS: BP 140/78
[2017-02-20 11:56] LABS: POINT-OF-CARE USER ID ENVKC36
[2017-02-20 15:06] VITALS: BP 160/78
[2017-02-20 16:37] LABS: POINT-OF-CARE METER ID UU14174216; POINT-OF-CARE USER ID ENVKC36
[2017-02-20 19:48] VITALS: BP 162/72
[2017-02-20 20:46] LABS: POINT-OF-CARE METER ID UU14174216
[2017-02-21 00:42] VITALS: BP 151/68
[2017-02-21 04:11] VITALS: BP 163/69
[2017-02-21 06:57] LABS: BASOPHIL COUNT 0.1 K/uL (0-0.1); EOSINOPHIL COUNT 0.2 K/uL (0-0.3); HEMATOCRIT 35.1 % (36.0-46.0); IMMATURE GRANULOCYTE (%) 0.4 % (0.0-0.7); INSTRUMENT ABS NEUTROPHIL CT 6.4 K/uL; LYMPHOCYTE COUNT 3.6 K/uL (1.0-2.8); MCH 28.6 PG (29.0-34.0); MCHC 31.3 G/DL (30.0-36.0); MCV 91.2 FL (83-99); MEAN PLAT.VOLUME 12.4 uM^3 (9.5-12.4); MONOCYTE (%) 9.1 % (3-12); NEUTROPHIL (%) 56.3 % (45-76); NEUTROPHIL COUNT 6.4 K/uL (1.8-6.4); PLATELET COUNT 297 K/uL (156-360); RBC DIS.WIDTH-CV 13.8 % (11.8-14.6); RBC DIS.WIDTH-SD 46.5 % (39-53); RED BLOOD COUNT 3.85 M/uL (3.80-5.20); WHITE BLOOD COUNT 11.3 K/uL (4.1-10.2)
[2017-02-21 07:26] LABS: ANION GAP 6 MEQ/L (2-14); CHLORIDE 105 MEQ/L (99-109); GFR ESTIMATE (CALCULATED) 28 mL/min/; POTASSIUM 4.3 MEQ/L (3.7-5.4); SAMPLE HEMOLYSIS CHECK 0; SAMPLE ICTERIC CHECK 0; SAMPLE LIPEMIA CHECK 0; SODIUM 142 MEQ/L (136-147); UREA NITROGEN (BUN) 52 mg/dL (9-23)
[2017-02-21 07:29] LABS: GLUCOSE 105 mg/dL (70-99)
[2017-02-21 08:40] VITALS: BP 178/82
[2017-02-21 11:53] VITALS: BP 175/81
[2017-02-21 15:44] VITALS: BP 174/68
[2017-02-21 19:54] VITALS: BP 162/68
[2017-02-22] VITALS (7 sets, daily range): BP systolic 146–192; BP diastolic 68–85
[2017-02-22 06:46] LABS: BASOPHIL COUNT 0.1 K/uL (0-0.1); EOSINOPHIL (%) 2.4 % (0-5); EOSINOPHIL COUNT 0.2 K/uL (0-0.3); HEMATOCRIT 36.7 % (36.0-46.0); IMMATURE GRANULOCYTE (%) 0.5 % (0.0-0.7); IMMATURE GRANULOCYTE COUNT 0.1 K/uL; INSTRUMENT ABS NEUTROPHIL CT 5.6 K/uL; LYMPHOCYTE COUNT 3.2 K/uL (1.0-2.8); MCH 28.3 PG (29.0-34.0); MCHC 31.1 G/DL (30.0-36.0); MCV 91.1 FL (83-99); MEAN PLAT.VOLUME 12.7 uM^3 (9.5-12.4); MONOCYTE (%) 9.5 % (3-12); NEUTROPHIL (%) 55.4 % (45-76); NEUTROPHIL COUNT 5.6 K/uL (1.8-6.4); PLATELET COUNT 307 K/uL (156-360); RBC DIS.WIDTH-CV 13.4 % (11.8-14.6); RBC DIS.WIDTH-SD 45.1 % (39-53); RED BLOOD COUNT 4.03 M/uL (3.80-5.20)
[2017-02-22 07:07] LABS: ANION GAP 5 MEQ/L (2-14); CHLORIDE 103 MEQ/L (99-109); GFR ESTIMATE (CALCULATED) 28 mL/min/; GLUCOSE 114 mg/dL (70-99); POTASSIUM 4.5 MEQ/L (3.7-5.4); SAMPLE HEMOLYSIS CHECK 0; SAMPLE ICTERIC CHECK 0; SAMPLE LIPEMIA CHECK 0; SODIUM 142 MEQ/L (136-147); UREA NITROGEN (BUN) 43 mg/dL (9-23)
[2017-02-22 07:34] LABS: POINT-OF-CARE METER ID UU14174216
[2017-02-22 11:19] LABS: POINT-OF-CARE METER ID UU14174216
[2017-02-22 17:33] LABS: POINT-OF-CARE METER ID UU14174216
[2017-02-22 20:56] LABS: POINT-OF-CARE METER ID UU13113698
[2017-02-23 01:19] VITALS: BP 101/45
[2017-02-23 04:45] VITALS: BP 135/61
[2017-02-23 05:52] LABS: BASOPHIL COUNT 0.1 K/uL (0-0.1); EOSINOPHIL (%) 2.6 % (0-5); EOSINOPHIL COUNT 0.3 K/uL (0-0.3); HEMATOCRIT 34.2 % (36.0-46.0); IMMATURE GRANULOCYTE (%) 0.4 % (0.0-0.7); INSTRUMENT ABS NEUTROPHIL CT 5.2 K/uL; LYMPHOCYTE COUNT 3.4 K/uL (1.0-2.8); MCH 28.7 PG (29.0-34.0); MCHC 31.3 G/DL (30.0-36.0); MCV 91.7 FL (83-99); MEAN PLAT.VOLUME 12.5 uM^3 (9.5-12.4); MONOCYTE COUNT 0.9 K/uL (0-0.8); NEUTROPHIL (%) 52.5 % (45-76); NEUTROPHIL COUNT 5.2 K/uL (1.8-6.4); PLATELET COUNT 257 K/uL (156-360); RBC DIS.WIDTH-CV 13.6 % (11.8-14.6); RBC DIS.WIDTH-SD 45.8 % (39-53); RED BLOOD COUNT 3.73 M/uL (3.80-5.20); WHITE BLOOD COUNT 9.8 K/uL (4.1-10.2)
[2017-02-23 06:23] LABS: ANION GAP 5 MEQ/L (2-14); CHLORIDE 106 MEQ/L (99-109); GFR ESTIMATE (CALCULATED) 30 mL/min/; POTASSIUM 4.1 MEQ/L (3.7-5.4); SAMPLE HEMOLYSIS CHECK 0; SAMPLE ICTERIC CHECK 0; SAMPLE LIPEMIA CHECK 0; SODIUM 144 MEQ/L (136-147); UREA NITROGEN (BUN) 34 mg/dL (9-23)
[2017-02-23 06:24] LABS: GLUCOSE 58 mg/dL (70-99)
[2017-02-23 07:54] VITALS: BP 152/58
[2017-02-23 08:23] LABS: POINT-OF-CARE METER ID UU14174216
[2017-02-23 11:24] VITALS: BP 130/60
[2017-02-23 11:29] LABS: POINT-OF-CARE METER ID UU14174216
[2017-02-23 13:51] LABS: POINT-OF-CARE METER ID UU14174216
[2017-02-23 16:37] LABS: POINT-OF-CARE METER ID UU13113781
[2017-02-23 19:00] VITALS: BP 155/67
[2017-02-23 21:22] LABS: POINT-OF-CARE METER ID UU13113781; POINT-OF-CARE USER ID ENVMNS
[2017-02-23 23:33] VITALS: BP 160/69
[2017-02-24 03:41] VITALS: BP 117/56
[2017-02-24 06:54] LABS: BASOPHIL COUNT 0.1 K/uL (0-0.1); EOSINOPHIL (%) 1.5 % (0-5); EOSINOPHIL COUNT 0.2 K/uL (0-0.3); IMMATURE GRANULOCYTE (%) 0.6 % (0.0-0.7); IMMATURE GRANULOCYTE COUNT 0.1 K/uL; INSTRUMENT ABS NEUTROPHIL CT 7.5 K/uL; LYMPHOCYTE COUNT 2.7 K/uL (1.0-2.8); MCH 28.9 PG (29.0-34.0); MCHC 31.2 G/DL (30.0-36.0); MCV 92.4 FL (83-99); MEAN PLAT.VOLUME 12.8 uM^3 (9.5-12.4); MONOCYTE COUNT 0.9 K/uL (0-0.8); NEUTROPHIL (%) 65.3 % (45-76); NEUTROPHIL COUNT 7.5 K/uL (1.8-6.4); PLATELET COUNT 241 K/uL (156-360); RBC DIS.WIDTH-SD 47.5 % (39-53); RED BLOOD COUNT 3.57 M/uL (3.80-5.20); WHITE BLOOD COUNT 11.5 K/uL (4.1-10.2)
[2017-02-24 07:00] LABS: ANION GAP 7 MEQ/L (2-14); CHLORIDE 101 MEQ/L (99-109); GFR ESTIMATE (CALCULATED) 30 mL/min/; POTASSIUM 4.1 MEQ/L (3.7-5.4); SAMPLE HEMOLYSIS CHECK 0; SAMPLE ICTERIC CHECK 0; SAMPLE LIPEMIA CHECK 0; SODIUM 141 MEQ/L (136-147); UREA NITROGEN (BUN) 34 mg/dL (9-23)
[2017-02-24 07:02] LABS: GLUCOSE 114 mg/dL (70-99)
[2017-02-24 07:51] LABS: POINT-OF-CARE METER ID UU13113781; POINT-OF-CARE USER ID NUTSLF44
[2017-02-24 09:00] VITALS: BP 144/65
[2017-02-24 11:46] LABS: POINT-OF-CARE METER ID UU13113781; POINT-OF-CARE USER ID NUTSLF44
[2017-02-24 12:00] VITALS: BP 159/68
[2017-02-24 16:52] LABS: POINT-OF-CARE USER ID NUTSLF44
[2017-02-24 18:21] VITALS: BP 154/68
[2017-02-24 19:00] VITALS: BP 148/65
[2017-02-24 21:02] LABS: POINT-OF-CARE METER ID UU13113781; POINT-OF-CARE USER ID ENVMNS
[2017-02-24 23:48] VITALS: BP 153/69
[2017-02-25 02:59] VITALS: BP 134/62
[2017-02-25 06:55] LABS: BASOPHIL COUNT 0.1 K/uL (0-0.1); EOSINOPHIL (%) 3.5 % (0-5); EOSINOPHIL COUNT 0.3 K/uL (0-0.3); HEMATOCRIT 31.6 % (36.0-46.0); IMMATURE GRANULOCYTE (%) 0.9 % (0.0-0.7); IMMATURE GRANULOCYTE COUNT 0.1 K/uL; INSTRUMENT ABS NEUTROPHIL CT 4.5 K/uL; LYMPHOCYTE COUNT 2.5 K/uL (1.0-2.8); MCH 28.8 PG (29.0-34.0); MCV 92.9 FL (83-99); MEAN PLAT.VOLUME 13.4 uM^3 (9.5-12.4); MONOCYTE (%) 8.9 % (3-12); MONOCYTE COUNT 0.7 K/uL (0-0.8); NEUTROPHIL (%) 54.8 % (45-76); NEUTROPHIL COUNT 4.5 K/uL (1.8-6.4); PLATELET COUNT 225 K/uL (156-360); RBC DIS.WIDTH-CV 14.3 % (11.8-14.6); RBC DIS.WIDTH-SD 48.3 % (39-53); WHITE BLOOD COUNT 8.2 K/uL (4.1-10.2)
[2017-02-25 08:17] LABS: ANION GAP 7 MEQ/L (2-14); CHLORIDE 101 MEQ/L (99-109); GFR ESTIMATE (CALCULATED) 27 mL/min/; GLUCOSE 224 mg/dL (70-99); POTASSIUM 4.3 MEQ/L (3.7-5.4); SAMPLE HEMOLYSIS CHECK 0; SAMPLE ICTERIC CHECK 0; SAMPLE LIPEMIA CHECK 0; SODIUM 140 MEQ/L (136-147); UREA NITROGEN (BUN) 32 mg/dL (9-23)
[2017-02-25 08:34] LABS: POINT-OF-CARE USER ID NUTSLF44
[2017-02-25 09:00] VITALS: BP 153/72
[2017-02-25 11:41] LABS: POINT-OF-CARE USER ID NUTSLF44
[2017-02-25 12:00] VITALS: BP 155/67
[2017-02-25 17:00] LABS: POINT-OF-CARE METER ID UU13113781; POINT-OF-CARE USER ID NUTSLF44
[2017-02-25 19:10] VITALS: BP 142/64
[2017-02-26] VITALS (12 sets, daily range): BP systolic 113–184; BP diastolic 49–78
[2017-02-26 03:20] LABS: BASE EXCESS 2.2 mEq/L (-3 to +3); BICARBONATE 31.4 mEq/L (22-26); CARBOXY HGB 1.8 % (0-5); METHEMOGLOBIN 1.6 % (0-1.5)
[2017-02-26 03:21] LABS: COMMENTS - BLOOD GASES C+; DEVICE NRBM; FI02 100 %; O2 FLOW 15 L/MIN; PCO2 70 mm Hg (35-45); PO2 72 mm Hg (80-100); SITE LR; pH 7.26 (7.35-7.45)
[2017-02-26 03:52] LABS: HEMATOCRIT 45.5 % (36.0-46.0); MCH 28.9 PG (29.0-34.0); MCHC 30.3 G/DL (30.0-36.0); MCV 95.4 FL (83-99); MEAN PLAT.VOLUME 13.2 uM^3 (9.5-12.4); RBC DIS.WIDTH-SD 49.4 % (39-53)
[2017-02-26 03:53] LABS: PLATELET COUNT 395 K/uL (156-360); RED BLOOD COUNT 4.77 M/uL (3.80-5.20); WHITE BLOOD COUNT 17.8 K/uL (4.1-10.2)
[2017-02-26 04:03] LABS: CHLORIDE 100 mEq/L (99-109); POTASSIUM 4.7 mEq/L (3.7-5.4); SODIUM 140 mEq/L (136-147)
[2017-02-26 04:04] LABS: GLUCOSE 297 mg/dL (70-99)
[2017-02-26 04:06] LABS: ANION GAP 15 MEQ/L (2-14)
[2017-02-26 04:08] LABS: GFR ESTIMATE (CALCULATED) 22 mL/min/
[2017-02-26 04:09] LABS: UREA NITROGEN (BUN) 33 mg/dL (9-23)
[2017-02-26 04:13] LABS: TROP-I INTERPRETATION NEGATIVE; TROPONIN-I 0.16 ng/mL (0.0-0.30)
[2017-02-26 04:44] LABS: ADD MIUA? YES; BILIRUBIN NEGATIVE; BLOOD NEGATIVE; COLOR YELLOW ((YELLOW)); GLUCOSE (STRIP) 50; KETONES NEGATIVE; LEUKOCYTES NEGATIVE; NITRITE NEGATIVE; PROTEIN (STRIP) >=500; SPECIFIC GRAVITY 1.011 (1.000-1.030); UROBILINOGEN 0.2 MG/DL (0.2-1.0)
[2017-02-26 05:13] LABS: EPITHELIAL CELLS RARE /HPF; MUCUS NONE SEEN /LPF; WHITE BLOOD CELLS 15-20 /HPF (0-5)
[2017-02-26 05:14] LABS: AMORPHOUS URATES CRYSTALS 3+; BACTERIA 2+ /HPF; CASTS PRESENT /LPF; CRYSTALS PRESENT; FINE GRANULAR CASTS 0-5 /LPF; UCUL ADDED? YES
[2017-02-26 05:31] LABS: METH RESISTANT S AUREUS PCR NEGATIVE (NEGATIVE)
[2017-02-26 05:45] LABS: PROBE CHECK PASS; SPECIMEN PROCESSING CONTROL PASS
[2017-02-26 10:34] LABS: TROP-I INTERPRETATION NEGATIVE; TROPONIN-I 0.26 ng/mL (0.0-0.30)
== END 2017-02-26 14:17 | disposition short-term general hospital (02) | DRG 280 ==
LOC: EME → EDBD 15:23 → EME 15:23 → 4WEST 18:33 → 5EAST 18:33 → 4EAST 18:33 → EDOF 18:33 → 4WEST 20:07 → 5EAST 02-17 16:42 → 4EAST 02-18 16:45 → 4WEST 02-26 03:36
PROVIDERS: Emergency Medicine; Family Medicine; Hospitalist; Internal Medicine; Internal Medicine Cardiovascular Disease; Internal Medicine Critical Care Medicine; Internal Medicine Gastroenterology; Internal Medicine Nephrology; Student in an Organized Health Care Education/Training Program
DX: I21.4 Non-ST elevation (NSTEMI) myocardial infarction (principal); K92.0 Hematemesis; E13.11 Other specified diabetes mellitus with ketoacidosis with coma; J44.1 Chronic obstructive pulmonary disease with (acute) exacerbation; D62 Acute posthemorrhagic anemia; N17.9 Acute kidney failure, unspecified; B37.81 Candidal esophagitis; M86.672 Other chronic osteomyelitis, left ankle and foot; L89.613 Pressure ulcer of right heel, stage 3; J96.01 Acute respiratory failure with hypoxia; J96.02 Acute respiratory failure with hypercapnia; I50.23 Acute on chronic systolic (congestive) heart failure; I13.0 Hypertensive heart and chronic kidney disease with heart failure and stage 1 through stage 4 chronic kidney disease, or unspecified chronic kidney disease; E87.5 Hyperkalemia; K29.70 Gastritis, unspecified, without bleeding; K92.1 Melena; N18.3 Chronic kidney disease, stage 3 (moderate); E78.5 Hyperlipidemia, unspecified; I25.10 Atherosclerotic heart disease of native coronary artery without angina pectoris; E11.21 Type 2 diabetes mellitus with diabetic nephropathy; E11.22 Type 2 diabetes mellitus with diabetic chronic kidney disease; E11.59 Type 2 diabetes mellitus with other circulatory complications; E11.69 Type 2 diabetes mellitus with other specified complication; E11.42 Type 2 diabetes mellitus with diabetic polyneuropathy; E11.621 Type 2 diabetes mellitus with foot ulcer; L97.522 Non-pressure chronic ulcer of other part of left foot with fat layer exposed; I89.0 Lymphedema, not elsewhere classified; I27.2 Other secondary pulmonary hypertension; I25.5 Ischemic cardiomyopathy; E66.9 Obesity, unspecified; Z66 Do not resuscitate; Z68.32 Body mass index [BMI] 32.0-32.9, adult; I25.2 Old myocardial infarction; Z95.5 Presence of coronary angioplasty implant and graft; Z79.4 Long term (current) use of insulin; Z79.02 Long term (current) use of antithrombotics/antiplatelets; Z79.82 Long term (current) use of aspirin; Z87.891 Personal history of nicotine dependence; Z89.432 Acquired absence of left foot; Z95.820 Peripheral vascular angioplasty status with implants and grafts; Z88.4 Allergy status to anesthetic agent
CPT/HCPCS: 36600; 71010; 73630; 76770; 78452; 80048; 80048 91; 80053; 80069; 80202; 81003; 82010; 82550; 82803; 82948; 83036; 83605; 83735; 83880; 84100; 84484; 85025; 85027; 85384; 85610; 85730; 86850; 86900; 86901; 86920; 87040; 87070; 87075; 87077; 87086; 87147; 87205; 87493; 87641; 88305; 88342 TC; 93005; 93306; 93308; 94002; 94640; 94640 76; 94760; 94799; 97530 GO; 97530 GP; 99202; 99281; 99285; A9500; C1769; C1887; C9113; J0610; J0696; J1644; J1815; J1940; J2060; J2250; J2270; J2405; J2543; J2765; J2920; J2930; J3010; J3370; J3475; J7040; J7050; J7120; J7644; P9016; P9017